=== PATIENT | male | born 1955 | race African-American/Black ===

== ENCOUNTER 2025-07-30 13:46 | Emergency (ER) | payer MEDICARE, MEDICAID ==
[~2025-07-30] VITALS: Ht 180.3 cm; Wt 60.0 kg
[2025-07-30 13:49] VITALS: BP 201/102; TEMP 36.7; O2SAT 99
[2025-07-30 13:51] VITALS: PULSE 100; RESP 18; O2SAT 98
== END 2025-07-30 15:42 | disposition left against medical advice (07) ==
LOC: ER 13:46
DX: Z00.8 Encounter for other general examination (principal)
CPT/HCPCS: 99281